=== PATIENT | female | born 1985 | race Hispanic/Latino ===

== ENCOUNTER 2020-06-02 18:59 | Emergency (ER) | payer BC, OTHER ==
--- NOTE | 2020-06-02 20:52 | RAD REPORT ---
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 No significant distraction or angulation deformity. Proximal fifth phalanx is intact. No other acute bone or joint finding. Small plantar spur is present. No air or foreign body in the soft tissues. IMPRESSION: Nondisplaced, nonangulated fracture distal left fifth toe
--- NOTE | 2020-06-02 20:52 | RAD REPORT ---
EXAM DESCRIPTION: RAD - Foot Right 3 View - 06/02/2020 8:38 pm CLINICAL HISTORY: PAIN, trauma, pain primarily right fourth toe COMPARISON: Foot Left 3 View dated 06/02/2020None. FINDINGS: No fracture, dislocation or periosteal reaction. No acute bone or joint finding. Small alan ntar spur is present. No air or foreign body in the soft tissues. IMPRESSION: Negative right foot examination for acute finding.
--- NOTE | 2020-06-02 21:08 | EDPHYS ---
Physician Documentation [facility] Name: Coty Mchugh Age: 35 yrs Sex: Female : 1985 Arrival Date: 06/02/2020 Time: 19:02 Bed 6 Private MD: ED Physician Elieser Connelly HPI: 06/02 20:25 This 35 yrs old Female presents to ER via Ambulatory with complaints of Fall jr8 Injury, Toe Injury. 20:25 Onset: The symptoms/episode began/occurred acutely, this morning, today. Associated jr8 injuries: The patient sustained right foot and left foot. Severity of symptoms: At their worst the symptoms were mild. The patient has experienced a previous episode. The patient has not recently seen a physician. Patient stated that she tripped causing her left 5th digit and right 4th digit to be bruised and with pain. 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 - Social history:: Smoking status: Patient/guardian denies using tobacco, Stopped _ months ago 10. ROS: 20:30 Eyes: Negative for injury, pain, redness, and discharge, ENT: Negative for injury, jr8 pain, and discharge, Neck: Negative for injury, pain, and swelling, Cardiovascular: Negative for chest pain, palpitations, and edema, Respiratory: Negative for shortness of breath, cough, wheezing, and pleuritic chest pain, Abdomen/GI: Negative for abdominal pain, nausea, vomiting, diarrhea, and constipation, Back: Negative for injury and pain, Neuro: Negative for headache, weakness, numbness, tingling, and seizure. 20:30 Skin: Negative for injury, rash, and discoloration. 20:30 MS/extremity: Positive for abrasion, ecchymosis, pain, swelling, tenderness, of the right foot and left foot. Exam: 20:30 Constitutional: This is a well developed, well nourished patient who is awake, alert, jr8 and in no acute distress. Cardiovascular: Regular rate and rhythm with a normal S1 and S2. No gallops, murmurs, or rubs. Normal PMI, no JVD. No pulse deficits. Respiratory: Lungs have equal breath sounds bilaterally, clear to auscultation and percussion. No rales, rhonchi or wheezes noted. No increased work of breathing, no retractions or nasal flaring. Skin: Warm, dry with normal turgor. Normal color with no rashes, no lesions, and no evidence of cellulitis. Neuro: Awake and alert, GCS 15, oriented to person, place, time, and situation. Cranial nerves II-XII grossly intact. Motor strength 5/5 in all extremities. Sensory grossly intact. Cerebellar exam normal. Normal gait. 20:30 Musculoskeletal/extremity: Extremities: grossly normal except: left 5th digit is with small abrasion, bruising, and tenderness to dorsal toe. Rest of foot unremarkable, right 4th digit with bruising and tenderness to dorsal surface of toe. Rest of extremity unremarkable , ROM: intact in all extremities, Circulation is intact in all extremities. Sensation intact. Vital Signs: 19:35 BP 118 / 80; Pulse 71; Resp 16 S; Temp 97.3; Pulse Ox 100% on R/A; Weight 113.4 kg (R); ca1 Height 5 ft. 7 in. (170.18 cm) (R); Pain 8/10; 21:12 BP 115 / 76; Pulse 72; Resp 14; Pulse Ox 100% on R/A; rv 19:35 Body Mass Index 39.16 (113.40 kg, 170.18 cm) ca1 Procedures: 21:08 Splinting: Splint applied to left foot using orthopedic shoe. applied by tech. Examined jr8 by me, post splint application: neurovascular intact, 2+ distal pulses palpable, brisk capillary refill noted, Patient tolerated well. MDM: 19:42 Patient medically screened. jr8 21:05 Data reviewed: vital signs, nurses notes, radiologic studies, plain films, and as a jr8 result, I will discharge patient. Data interpreted: Pulse oximetry: on room air is 100 %. Interpretation: normal. Counseling: I had a detailed discussion with the patient and/or guardian regarding: the historical points, exam findings, and any diagnostic results supporting the discharge/admit diagnosis, radiology results, the need for outpatient follow up, a microscopist, to return to the emergency department if symptoms worsen or persist or if there are any questions or concerns that arise at home. 06/02 19:48 Order name: XRAY Foot RIGHT 3 View; Complete Time: 21:05 jr8 06/02 19:48 Order name: XRAY Foot LEFT 3 View; Complete Time: 21: jr8 Administered Medications: No medications were administered Disposition: 06/03 08:18 Co-signature as Attending Physician, Elieser Connelly MD. grant Disposition: 06/02/20 21:08 Discharged to Home. Impression: Displaced fracture of distal phalanx of left lesser toe(s). - Condition is Stable. - Discharge Instructions: Toe Fracture. - Medication Reconciliation Form, Thank You Letter, Antibiotic Education, Prescription Opioid Use form. - Follow up: Hang Scott DPM; When: 2 - 3 days; Reason: Recheck today's complaints, Continuance of care, Re-evaluation by your physician. - Problem is new. - Symptoms have improved. Signatures: Dispatcher [employer] EDMS Elieser Connelly MD MD pkCorbin Pappas PA PA jr8 [employer], RN RN Trina Aguilar RN RN ca1 Corrections: (The following items were deleted from the chart) 06/02 20:30 20:25 Onset: The symptoms/episode began/occurred acutely, yesterday, jr8 jr8 21:13 21:08 06/02/2020 21:08 Discharged to Home. Impression: Displaced fracture of distal rv phalanx of left lesser toe(s). Condition is Stable. Forms are Medication Reconciliation Form, Thank You Letter, Antibiotic Education, Prescription Opioid Use. Follow up: Hang Scott; When: 2 - 3 days; Reason: Recheck today's complaints, Continuance of care, Re-evaluation by your physician. Problem is new. Symptoms have improved. jr8
--- NOTE | 2020-06-02 21:08 | ER ---
Nurse's Notes [facility] Name: Coty Mchugh Age: 35 yrs Sex: Female : 1985 Arrival Date: 06/02/2020 Time: 19:02 Bed 6 Private MD: Diagnosis: Displaced fracture of distal phalanx of left lesser toe(s) Presentation: 06/02 19:35 Chief complaint: Patient states: Tripped and fell this morning. Reports pain, bruising ca1 on L 5th toe, and R 4th toe. Coronavirus screen: Client denies travel out of the [place] in the last 14 days. At this time, the client does not indicate any symptoms associated with coronavirus-19. Ebola Screen: Patient negative for fever greater than or equal to 101.5 degrees Fahrenheit, and additional compatible Ebola Virus Disease symptoms Patient denies exposure to infectious person. Patient denies travel to an Ebola-affected area in the 21 days before illness onset. No symptoms or risks identified at this time. Initial Sepsis Screen: Does the patient meet any 2 criteria? No. Patient's initial sepsis screen is negative. Does the patient have a suspected source of infection? No. Patient's initial sepsis screen is negative. Risk Assessment: Do you want to hurt yourself or someone else? Patient reports no desire to harm self or others. Onset of symptoms was June 02, 2020. 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 - Social history:: Smoking status: Patient/guardian denies using tobacco, Stopped _ months ago 10. Screenin:04 Abuse screen: Denies threats or abuse. Denies injuries from another. Nutritional rv screening: No deficits noted. Tuberculosis screening: No symptoms or risk factors identified. Fall Risk None identified. Assessment: 20:04 General: Appears in no apparent distress. comfortable, Behavior is calm, cooperative. rv Pain: Complains of pain in right foot and left foot. Neuro: Level of Consciousness is awake, alert, obeys commands, Oriented to person, place, time, situation. Cardiovascular: Patient's skin is warm and dry. Respiratory: Airway is patent. Vital Signs: 19:35 BP 118 / 80; Pulse 71; Resp 16 S; Temp 97.3; Pulse Ox 100% on R/A; Weight 113.4 kg (R); ca1 Height 5 ft. 7 in. (170.18 cm) (R); Pain 8/10; 21:12 BP 115 / 76; Pulse 72; Resp 14; Pulse Ox 100% on R/A; rv 19:35 Body Mass Index 39.16 (113.40 kg, 170.18 cm) ca1 ED Course: 19:02 Patient arrived in ED. as 19:37 Triage completed. ca1 19:38 Arm band placed on right wrist. ca1 19:40 Corbin Lion PA is PHCP. jr8 19:40 Elieser Connelly MD is Attending Physician. jr8 19:44 [employer], ADAM is Primary Nurse. rv 20:04 Patient has correct armband on for positive identification. Pulse ox on. NIBP on. rv 20:05 No provider procedures requiring assistance completed. Patient did not have IV access rv during this emergency room visit. 20:38 XRAY Foot RIGHT 3 View In Process Unspecified. EDMS 20:38 XRAY Foot LEFT 3 View In Process Unspecified. EDMS 21:06 Hang Scott DPM is Referral Physician. jr8 Administered Medications: No medications were administered Outcome: 21:08 Discharge ordered by . jr 21:12 Discharged to home ambulatory, with family. rv 21:12 Condition: good 21:12 Discharge instructions given to patient, Instructed on discharge instructions, follow up and referral plans. Demonstrated understanding of instructions, follow-up care. 21:13 Patient left the ED. rv Signatures: Dispatcher [employer] EDMS Teetee Jacobson Josh, PA PA jr8 [employer], RN RN rv Trina Gibson RN RN ca1
[2020-06-03 12:53] VITALS: TEMP 97.3; O2SAT 100
[2020-06-03 12:59] VITALS: BP 115/76
== END 2020-06-02 21:13 | disposition home or self-care (01) ==
LOC: ER 18:59
DX: S92.532A Displaced fracture of distal phalanx of left lesser toe(s), initial encounter for closed fracture (principal); W18.49XA Other slipping, tripping and stumbling without falling, initial encounter; Y93.01 Activity, walking, marching and hiking; Y92.9 Unspecified place or not applicable
CPT/HCPCS: 99283